=== PATIENT | male | born 1960 | race Caucasian/White ===

== ENCOUNTER 2017-08-21 23:11 | Emergency (ER) | payer OTHER ==
[~2017-08-21] VITALS: Ht 175.3 cm; Wt 81.6 kg
[2017-08-22] MEDS ORDERED: ALBUTEROL2.5 MG/3 M IH (04:54)
[2017-08-22] MEDS ORDERED: ZYNCOF 20-400120 ML PO (04:54)
[2017-08-22] MEDS ORDERED: DOLOGESIC 500-1 EACH PO (04:54)
== END 2017-08-22 05:19 | disposition home or self-care (01) ==
LOC: ER 23:11
DX: R55 Syncope and collapse (principal); J20.9 Acute bronchitis, unspecified